=== PATIENT | male | born 1955 | race Caucasian/White ===

== ENCOUNTER → 2023-11-04 06:45 | Outpatient (REF) | payer MEDICARE, OTHER, SELFPAY ==
[2023-11-04 07:53] LABS: Hematocrit 46.8 % (39.0-52.0); Hemoglobin 15.9 g/dL (13.0-18.0); Mean Corpuscular Hgb 31.6 pg (27.0-31.0); Mean Platelet Volume 9.7 fL (7.4-10.4); Platelet Count 276 10^3/uL (130-400); Red Blood Cell Count 5.03 10^6/uL (4.70-6.10); White Blood Cell Count 4.9 10^3/uL (4.8-10.8)
[2023-11-04 08:28] LABS: ALT (SGPT) 31 U/L (0-50); AST (SGOT) 35 U/L (17-59); Albumin 4.6 g/dl (3.5-5.0); Alkaline Phosphatase 72 U/L (38-126); Blood Urea Nitrogen 21 mg/dl (9-20); Calcium 9.8 mg/dl (8.4-10.2); Carbon Dioxide 30 mmol/L (22-30); Chloride 103 mmol/L (98-107); Glucose 96 mg/dl (70-99); HDL Cholesterol 79 mg/dl; Iron 106 ug/dl (49-181); LDL Cholesterol, Calculated 127 mg/dl; Potassium 5.3 mmol/L (3.5-5.1); Sodium 141 mmol/L (135-145); Total Bilirubin 0.6 mg/dl (0.2-1.3); Total Cholesterol 219 mg/dl (50-199); Total Protein 7.4 g/dl (6.3-8.2); Triglyceride 65 mg/dl (10-149); Uric Acid 5.5 mg/dl (3.5-8.5); Very Low Density Lipoprotein 13 mg/dl (0-30); eGFR > 60.00
[2023-11-04 08:37] LABS: Percent Saturation 35 % (20-50); Total Iron Binding Capacity 295 ug/dl (261-462)
[2023-11-04 08:43] LABS: Free T4 0.84 ng/dl (0.78-2.19); Vitamin D, 25-OH*** 25.9 ng/mL (30-80)
[2023-11-04 08:56] LABS: PSA, Total - Screen 1.66 ng/ml (0.0-4.0); TSH 2.35 uIU/ml (0.47-4.68)
[2023-11-04 09:16] LABS: Vitamin B12 491 pg/ml (239-931)
== END ==
LOC: REG 06:45
PROVIDERS: ATTENDING PHYSICIAN Family Medicine
DX: R68.89 Other general symptoms and signs (principal); E78.5 Hyperlipidemia, unspecified; M25.551 Pain in right hip; Z12.5 Encounter for screening for malignant neoplasm of prostate; E53.8 Deficiency of other specified B group vitamins; E55.9 Vitamin D deficiency, unspecified
CPT/HCPCS: 36415; 80053; 80061; 82306; 82607; 83540; 83550; 84439; 84443; 84550; 85027; G0103

== ENCOUNTER → 2025-01-11 06:35 | Outpatient (REF) | payer MEDICARE, OTHER, SELFPAY ==
[2025-01-11 08:04] LABS: Hematocrit 43.9 % (39.0-52.0); Hemoglobin 14.8 g/dL (13.0-18.0); Mean Corp Hgb Conc. 33.7 g/dL (33.0-37.0); Mean Corpuscular Volume 92.4 fL (80.0-94.0); Nucleated Red Blood Cells % 0 % (-); Platelet Count 260 10^3/uL (130-400); Red Cell Dist. Width 12.4 % (11.5-14.5)
[2025-01-11 09:00] LABS: ALT (SGPT) 22 U/L (0-50); AST (SGOT) 26 U/L (17-59); Albumin 4.7 g/dl (3.5-5.0); Alkaline Phosphatase 53 U/L (38-126); Blood Urea Nitrogen 26 mg/dl (9-20); Calcium 9.7 mg/dl (8.4-10.2); Carbon Dioxide 29 mmol/L (22-30); Chloride 106 mmol/L (98-107); Glucose 89 mg/dl (70-99); HDL Cholesterol 87 mg/dl; Iron 93 ug/dl (49-181); LDL Cholesterol, Calculated 152 mg/dl; Potassium 5.1 mmol/L (3.5-5.1); Sodium 142 mmol/L (135-145); Total Protein 7.2 g/dl (6.3-8.2); Uric Acid 5.0 mg/dl (3.5-8.5); Very Low Density Lipoprotein 14 mg/dl (0-30); eGFR > 60.00
[2025-01-11 09:10] LABS: Total Iron Binding Capacity 287 ug/dl (261-462)
[2025-01-11 09:57] LABS: Vitamin D, 25-OH*** 30.8 ng/mL (30-80)
[2025-01-11 10:11] LABS: PSA, Total - Screen 1.92 ng/ml (0.0-4.0); TSH 2.55 uIU/ml (0.47-4.68)
[2025-01-11 10:30] LABS: Vitamin B12 440 pg/ml (239-931)
== END ==
LOC: REG 06:35
PROVIDERS: ATTENDING PHYSICIAN Family Medicine
DX: E78.5 Hyperlipidemia, unspecified (principal); Z12.5 Encounter for screening for malignant neoplasm of prostate; Z13.29 Encounter for screening for other suspected endocrine disorder; E53.8 Deficiency of other specified B group vitamins; E55.9 Vitamin D deficiency, unspecified; M25.551 Pain in right hip; D64.9 Anemia, unspecified
CPT/HCPCS: 36415; 80053; 80061; 82306; 82607; 83540; 83550; 84443; 84550; 85025; G0103